=== PATIENT | male | born 1965 | race African-American/Black ===

== ENCOUNTER 2017-12-24 17:47 | Emergency (ER) | payer MEDICAID ==
[~2017-12-24] VITALS: Ht 188 cm; Wt 101.2 kg
[2017-12-24 17:59] VITALS: BP 110/69
--- NOTE | 2017-12-24 18:15 | NUR ---
PATIENT PRESENTS TO ED WITH EPIGASTRIC PAIN THAT RADIATES TO THE ABDOMEN X 2-3 MONTHS . PT STATES " THIS PAIN HAS BEEN HAPPENING FOR YEARS BUT GOT WORSE IN THE LAST 2-3 MONTHS, I HAVE BEEN NAUSEUS DAILY BUT DID VOMIT THIS MORNING" . ; SKIN IS PINK/WARM/DRY; AAOX4 WITH EVEN AND STEADY GAIT; PT DENIES ANY FEVER, CP, SOB, OR COUGH AT THIS TIME; PATIENT STATES PAIN OF 9/10 AT THIS TIME IN EPIGASTRIC REGION THAT RADIATES TO THE ABDOMEN; VSS; PATIENT POSITIONED FOR COMFORT; HOB ELEVATED; BEDRAILS UP X2; BED DOWN. ER MD MADE AWARE OF PT STATUS.
[2017-12-24] MEDS ORDERED: ONDANSETRON 4 MG ODT PO ONE (18:35)
[2017-12-24] MEDS ORDERED: PANTOPRAZOLE 40 MG TABEC PO ONE (18:35)
[2017-12-24 19:06] VITALS: BP 110/69
--- NOTE | 2017-12-24 19:06 | NUR ---
Patient discharged with v/s stable. Written and verbal after care instructions given and explained. Patient alert, oriented and verbalized understanding of instructions. Ambulatory with steady gait. All questions addressed prior to discharge. ID band removed. Patient advised to follow up with PMD. Rx of PROTONIX given. Patient educated on indication of medication including possible reaction and side effects. Opportunity to ask questions provided and answered.
== END 2017-12-24 19:06 | disposition home or self-care (01) ==
LOC: MED 17:47
DX: K29.70 Gastritis, unspecified, without bleeding (principal); K27.9 Peptic ulcer, site unspecified, unspecified as acute or chronic, without hemorrhage or perforation
CPT/HCPCS: 99283; S0119

== ENCOUNTER 2018-11-24 13:42 | Emergency (ER) | payer MEDICAID, OTHER ==
[~2018-11-24] VITALS: Ht 190.5 cm; Wt 95.3 kg
[2018-11-24 14:09] VITALS: BP 131/69
--- NOTE | 2018-11-24 14:13 | NUR ---
VSS; PT AMB TO LOBBY WITH PARTNER
--- NOTE | 2018-11-24 14:56 | NUR ---
PT AMBULATES TO BED 3
--- NOTE | 2018-11-24 15:00 | NUR ---
53 Y/M BIB WITH C/O R SHOULDER PAIN X 2 MONTHS, PAIN IS WORSENING. REPORTS SEVERE SHOOTING PAIN /. < CAP REFILL, + ROM, + CMS, - DEFORMITY, PT IS AAOX4 , VSS, BED DOWN, BEDRAIL UP X 1, ER MD AWARE AND NOTIFIED OF PT STATUS RX: TAGAMET HX: PEPTIC ULCER
--- NOTE | 2018-11-24 15:24 | NUR ---
RAD AT BEDSIDE
[2018-11-24] MEDS ORDERED: KETOROLAC 60 MG/2 ML VIAL IM ONE (15:25)
[2018-11-24] MEDS ORDERED: DEXAMETHASONE 10 MG/ML VIAL IM ONE (15:25)
[2018-11-24 16:42] VITALS: BP 128/65
--- NOTE | 2018-11-24 16:42 | NUR ---
Patient discharged with v/s stable. Written and verbal after care instructions given and explained. Patient alert, oriented and verbalized understanding of instructions. Ambulatory with steady gait. All questions addressed prior to discharge. ID band removed. Patient advised to follow up with PMD. Rx of VOLTAREN XR, ANAD TRAMADOL given. Patient educated on indication of medication including possible reaction and side effects. Opportunity to ask questions provided and answered.
== END 2018-11-24 16:42 | disposition home or self-care (01) ==
LOC: MED 13:42
DX: S43.101A Unspecified dislocation of right acromioclavicular joint, initial encounter (principal); X58.XXXA Exposure to other specified factors, initial encounter; Y93.89 Activity, other specified; Y92.69 Other specified industrial and construction area as the place of occurrence of the external cause; Y99.0 Civilian activity done for income or pay
CPT/HCPCS: 73030; 96372; 99283; J1100; J1885; Q0092